=== PATIENT | male | born 1975 | race Two or more races ===

== ENCOUNTER 2018-08-10 23:31 | Emergency (ER) | payer MEDICAID ==
[~2018-08-10] VITALS: Ht 167.6 cm; Wt 80.0 kg
[2018-08-10] MEDS ORDERED: ketorolac trometh. 30mg/ml inj. IV ONE (23:50)
[2018-08-10] MEDS ORDERED: normal saline 1000ML IV soln IVB ONE (23:50)
[2018-08-10] MEDS ORDERED: ondansetron/PF 4mg/2ml inj IV ONE (23:50)
[2018-08-10] MEDS ORDERED: HYDROmorphone inj. 0.5 MG/0.5 ML DISP.SYRIN IV PRN (23:50)
[2018-08-11 00:01] LABS: BASOPHILS % (AUTO) 0.3 % (0-1); EOSINOPHILS # (AUTO) 0.2 X10'3 (0-0.9); EOSINOPHILS % (AUTO) 1.9 % (0-6); HEMATOCRIT 41.6 % (42.0-52.0); HEMOGLOBIN 14.3 g/dl (14.0-17.9); LYMPHOCYTES # (AUTO) 1.7 X10'3 (1.1-4.8); LYMPHOCYTES % (AUTO) 17.5 % (21-51); MEAN CORPUSCULAR HEMOGLOBIN 30.8 PG (27.0-31.0); MEAN CORPUSCULAR HGB CONC 34.3 % (33.0-36.5); MEAN CORPUSCULAR VOLUME 89.7 FL (78-98); MONOCYTES # (AUTO) 0.5 X10'3 (0-0.9); MONOCYTES % (AUTO) 5.4 % (2-12); NEUTROPHILS # (AUTO) 7.2 X10'3 (1.8-7.7); NEUTROPHILS % (AUTO) 74.9 % (42-75); PLATELET COUNT 271 X10'3 (140-440); RED BLOOD COUNT 4.64 X10'6 (4.70-6.10); RED CELL DISTRIBUTION WIDTH 13.5 % (11.5-14.5); WHITE BLOOD COUNT 9.6 X10'3 (4.5-11.0)
[2018-08-11] MEDS: HYDROmorphone 1 mg/ml syringe IV PRN ×2 (00:02→00:57)
[2018-08-11 00:16] LABS: ALANINE AMINOTRANSFERASE 24 U/L (12-78); ALBUMIN 3.7 G/DL (3.4-5.0); ALBUMIN/GLOBULIN RATIO 1.3 (1.1-1.5); ALKALINE PHOSPHATASE 60 IU/L (46-116); ANION GAP 5 (8-16); ASPARTATE AMINO TRANSFERASE 17 U/L (10-37); BILIRUBIN,TOTAL 0.5 MG/DL (0.1-1.0); BLOOD UREA NITROGEN 14 MG/DL (7-18); BUN/CREATININE RATIO 11.5 (5.4-32.0); CALCIUM 8.6 MG/DL (8.5-10.1); CHLORIDE 108 MMOL/L (99-107); CREATININE 1.22 MG/DL (0.60-1.10); GLUCOSE 113 MG/DL (70-104); LIPASE 141 U/L (73-393); POTASSIUM 3.8 MMOL/L (3.5-5.1); SODIUM 143 MMOL/L (135-145); TOTAL CARBON DIOXIDE 29.9 MMOL/L (24-32); TOTAL PROTEIN 6.5 G/DL (6.4-8.2); eGFR 64 ML/MIN
[2018-08-11 00:53] LABS: CLARITY,URINE CLOUDY (Clear); COLOR,URINE AMBER (Yellow); GLUCOSE, URINE NEGATIVE (Neg); KETONES,URINE TRACE mg/dl (Neg); LEUKOCYTE ESTERASE ,URINE NEGATIVE (Neg); NITRITES, URINE NEGATIVE (Neg); OCCULT BLOOD,URINE LARGE (Neg); PH,URINE 6.5 (4.8-8.0); PROTEIN,URINE 30 mg/dl (Neg)
[2018-08-11 00:58] LABS: UA COLLECTION TYPE NON-SPECIFIED
[2018-08-11 01:02] LABS: BACTERIA,URINE FEW /HPF (Neg); MUCUS STRANDS FEW /LPF (Neg); RBC,URINE TNTC /HPF (0-2); SQUAMOUS EPITHELIAL CELL,UR NONE SEEN /LPF (FEW); WBC,URINE 0-4 /HPF (0-4)
[2018-08-11] MEDS ORDERED: TADA20TA PO (01:20)
[2018-08-11] MEDS ORDERED: KETO10TA2 PO (01:20)
[2018-08-11] MEDS ORDERED: HYDR-565 PO (01:20)
[2018-08-11] MEDS ORDERED: ONDA4TAB9 SL (01:20)
[2018-08-11] MEDS ORDERED: HYDROmorphone inj. 0.5 MG/0.5 ML DISP.SYRIN IV STA (01:46)
[2018-08-11 01:53] VITALS: BP 121/77
[2018-08-11] MEDS ORDERED: HYDROmorphone 1 mg/ml syringe IV ONE (01:55)
== END 2018-08-11 01:56 | disposition home or self-care (01) ==
LOC: ER 23:32
DX: N20.0 Calculus of kidney (principal); K57.90 Diverticulosis of intestine, part unspecified, without perforation or abscess without bleeding; N13.4 Hydroureter; N13.30 Unspecified hydronephrosis; Z79.899 Other long term (current) drug therapy
CPT/HCPCS: 36415; 74176; 80053; 81001; 83690; 85025; 96374; 96375; 96376; 99285; J1170; J1885; J2405